=== PATIENT | female | born 1950 | race Caucasian/White ===

== ENCOUNTER 2017-08-27 08:17 | Emergency (ER) | payer MEDICARE, BC ==
[2017-08-27 08:44] VITALS: BP 132/65
--- NOTE | 2017-08-27 09:45 | UC ---
Skin Complaint HPI - HPI Summary HPI Summary: PATIENT WAS DOING YARD WORK 2 DAYS AGO AND YESTERDAY SHE HAD AN IRRITATION IN HER LEFT ARMPIT. FOUND A TICK WHICH HER REMOVED PARTIALLY. CAME IN TODAY BECAUSE SHE IS CONCERNED ABOUT THE SURROUNDING REDNESS AND TENDERNESS. SHE THINKS THE TICK MAY BEEN ATTACHED FOR AT LEAST 24 HOURS WHEN SHE FOUND IT. - History of Current Complaint Chief Complaint: UCSkin Time Seen by Provider: 08/27/17 09:28 Stated Complaint: TICK BITE Hx Obtained From: Patient Onset/Duration: Sudden Onset, Lasting Days, Still Present Timing: Constant Onset Severity: Mild Current Severity: Mild Pain Intensity: 1 Pain Scale Used: 0-10 Numeric Location: Discrete - LEFT AXILLA Character: Redness, Painful Aggravating Factor(s): Touch Alleviating Factor(s): Nothing Associated Signs & Symptoms: Positive: Tenderness - Allergy/Home Medications Allergies/Adverse Reactions: Allergies Allergy/AdvReac Type Severity Reaction Status Date / Time No Known Allergies Allergy Verified 08/27/17 08:33 Review of Systems Constitutional: Negative Skin: Other - ERYTHEMA AT BITE SITE Respiratory: Negative Cardiovascular: Negative Gastrointestinal: Negative All Other Systems Reviewed And Are Negative: Yes PMH/Surg Hx/FS Hx/Imm Hx Previously Healthy: Yes - Surgical History Surgical History: Yes Surgery Procedure, Year, and Place: x4. left knee surgery - Family History Known Family History: Negative: Cardiac Disease, Hypertension, Diabetes - Social History Alcohol Use: Occasionally Substance Use Type: None Smoking Status (MU): Never Smoked Tobacco Have You Smoked in the Last Year: No Physical Exam Triage Information Reviewed: Yes Appearance: Well-Appearing, No Pain Distress, Well-Nourished Vital Signs: Initial Vital Signs Temp 98.5 F 08/27/17 08:34 Pulse 63 08/27/17 08:34 Resp 16 08/27/17 08:34 BP 132/65 08/27/17 08:34 Pulse Ox 98 08/27/17 08:34 Vital Signs Reviewed: Yes Eyes: Positive: Conjunctiva Clear ENT: Positive: Hearing grossly normal Neck: Positive: Supple Respiratory: Positive: No respiratory distress, No accessory muscle use Cardiovascular: Positive: Pulses Normal Abdomen Description: Positive: Soft Musculoskeletal: Positive: No Edema Neurological: Positive: Alert Psychological: Positive: Age Appropriate Behavior Skin: Positive: Other - 4.5CM AREA OF ERYTHEMA SURROUNDING TICK BITE SITE LEFT AXILLA. PINHEAD SIZED TICK PART RETAINED. MILDLY TENDER Course/Dx - Course Course Of Treatment: REDNESS IS MORE LIKELY LOCAL IRRITATION AND INFLAMMATION FROM TICK BITE THAN INFECTION/CELLULITIS. PT WILL FOLLOW-UP IF NOT IMPROVING OVER THE NEXT SEVERAL DAYS. - Diagnoses Provider Diagnoses: TICK BITE Discharge - Sign-Out/Discharge Documenting (check all that apply): Discharge/Admit/Transfer - Discharge Plan Condition: Stable Disposition: HOME Prescriptions: Doxycycline Monohydrate [Doxycycline Monohydrate] 2 cap PO ONCE #2 cap Patient Education Materials: Tick Bite (ED) Referrals: Mariel Galaviz MD [Primary Care Provider] - If Needed Additional Instructions: TICK BITE PROPHYLAXIS You received 200mg of doxycycline for prophylaxis against Lyme disease. The Infectious Disease Society of [place] (IDSA) does not generally recommend antimicrobial prophylaxis for prevention of Lyme disease after a recognized tick bite. However, in areas that are highly endemic for Lyme disease, a single dose of doxycycline may be offered to adult patients (200 mg) who are not and to children older than 8 years of age (4 mg/kg up to a maximum dose of 200 mg) when all of the following circumstances exist: CRITERIA FOR RECEIVING PROPHYLACTIC TREATMENT FOR LYME DISEASE 1) TICK ATTACHED FOR AT LEAST 36 HRS 2) TICK IS AN ADULT OR [place] DEER TICK 3) YOU LIVE IN AN AREA WHERE LYME DISEASE IS PREVALENT (i.e., [place], [place], [place] , [place], [place], [place], [place], [place], [place], [place], [place], [place]) 4) YOU HAVE NO CONTRAINDICATION TO THE MEDICATION (DOXYCYCLINE) 5) PROPHYLAXIS IS BEGUN WITHIN 72 HRS OF TICK REMOVAL BE VIGILANT OF YOUR SYMPTOMS AND DON'T HESITATE TO GET SEEN AGAIN IF YOU DEVELOP UNEXPLAINED FEVER, HEADACHE, JOINT PAIN, BODY ACHES, RASH OR ANY OTHER CONCERNING SYMPTOMS. Antibiotic treatment following a tick bite is not recommended as a means to prevent anaplasmosis, babesiosis, ehrlichiosis, or [place] spotted fever. There is no evidence this practice is effective, and it may simply delay onset of disease. Instead, persons who experience a tick bite should be alert for symptoms suggestive of tickborne illness and consult a physician if fever, rash, or other symptoms of concern develop. - Billing Disposition and Condition Condition: STABLE Disposition: HOME
== END 2017-08-27 09:54 | disposition home or self-care (01) ==
LOC: UCEAST 08:17
DX: S40.862A Insect bite (nonvenomous) of left upper arm, initial encounter (principal); W57.XXXA Bitten or stung by nonvenomous insect and other nonvenomous arthropods, initial encounter; Y93.9 Activity, unspecified; Y92.9 Unspecified place or not applicable
CPT/HCPCS: 99212; G0463

== ENCOUNTER 2020-10-11 13:16 | Inpatient (IN) ==
[2020-10-11 17:46] LABS: ABS Eosinophils 0.2 10^3/ul (0-0.6); ABS Lymphocytes 2.5 10^3/ul (1.0-4.8); ABS Monocytes 0.3 10^3/ul (0-0.8); ABS Neutrophils 4.5 10^3/ul (1.5-7.7); Eosinophil % 2.1 %; Hematocrit 38 % (35-47); Lymphocyte % 33.4 %; Mean Corpuscular HGB Conc 34 g/dL (31-36); Mean Corpuscular Hemoglobin 29 pg (27-31); Mean Corpuscular Volume 86 fL (80-97); Mean Platelet Volume 8.9 fL (7.4-10.4); Nucleated Red Blood Cells % 0.1; Platelet Count 230 10^3/uL (150-450); Red Blood Count 4.44 10^6 /uL (3.70-4.87); Red Cell Distribution Width 14 % (10-15); White Blood Count 7.5 10^3/uL (3.5-10.8)
[2020-10-11 17:56] LABS: Activated Partial Thrombo Time 29.1 seconds (26.0-38.0); INR 0.92 (0.82-1.09)
[2020-10-11 18:03] LABS: Albumin 4.5 g/dL (3.2-5.2); Albumin/Globulin Ratio 1.8 (1-3); Calcium 9.5 mg/dL (8.6-10.3); EGFR African American 98.5 (>60); EGFR Non-African American 81.4 (>60); Globulin 2.5 g/dL (2-4); Potassium 3.8 mmol/L (3.5-5.0); Total Bilirubin 0.4 mg/dL (0.2-1.0)
[2020-10-11] MEDS ORDERED: Ondansetron 4 mg VIAL 2 MG/ML 2 ml VIAL IV PRN (18:04)
[2020-10-11] MEDS ORDERED: Dexamethasone IV 4 MG/ML VIAL 1 ml VIAL IV SLOW PU ONE (21:11)
[2020-10-12 04:54] LABS: ABS Lymphocytes 0.8 10^3/ul (1.0-4.8); ABS Monocytes 0.1 10^3/ul (0-0.8); ABS Neutrophils 5.1 10^3/ul (1.5-7.7); Eosinophil % 0.1 %; Hematocrit 40 % (35-47); Hemoglobin 13.2 g/dL (12.0-16.0); Lymphocyte % 13.8 %; Mean Corpuscular HGB Conc 33 g/dL (31-36); Mean Corpuscular Hemoglobin 29 pg (27-31); Mean Corpuscular Volume 87 fL (80-97); Mean Platelet Volume 9.1 fL (7.4-10.4); Platelet Count 234 10^3/uL (150-450); Red Blood Count 4.56 10^6 /uL (3.70-4.87); Red Cell Distribution Width 14 % (10-15); White Blood Count 5.9 10^3/uL (3.5-10.8)
[2020-10-12] MEDS ORDERED: Polyethylene Glycol 3350 17 GM PACKET PO PRN (08:34)
[2020-10-12] MEDS ORDERED: Lactated Ringers 1000 ml BAG 1,000 ML IV SCH (09:00)
[2020-10-12] MEDS: Magnesium Hydroxide LIQ 30 ML UDC PO SCH ×2 (09:41→23:11)
[2020-10-12 12:20] LABS: Urine Appearance Cloudy; Urine Bilirubin Negative (Negative); Urine Blood Negative (Negative); Urine Color Yellow; Urine Glucose Negative (Negative); Urine Ketones 1+ (Negative); Urine Nitrite Negative (Negative); Urine Protein Negative (Negative); Urine Urobilinogen Negative (Negative)
[2020-10-12 12:48] LABS: Urine Bacteria Absent (Absent); Urine Red Blood Cell Absent (Absent); Urine Squamous Epithelial Cell Present (Absent); Urine White Blood Cell 2+(11-20/hpf) (Absent)
[2020-10-12] MEDS ORDERED: Buffered Lidocaine 1% SYRIN 1 ml INTRADERM ONE (13:05)
[2020-10-12] MEDS ORDERED: ceFAZolin 2 GM PREMIX 2 GM/50 ML BAG ONE (13:37)
[2020-10-12] MEDS ORDERED: fentaNYL 250 mcg/5 ml 50 MCG/ML 5 ml VIAL (250 MCG) ONE (13:40)
[2020-10-12] MEDS ORDERED: Remifentanil 2 MG VIAL ONE ×2 (13:43→18:37)
[2020-10-12] MEDS ORDERED: Midazolam 2 mg/2 ml VIAL 1 mg/ml 2 ml VIAL (2 mg) ONE (13:43)
[2020-10-12] MEDS ORDERED: Propofol 10 MG/ML 20 ML BTL ONE (13:44)
[2020-10-12] MEDS ORDERED: Lidocaine 2% PF 5 ML VIAL ONE (13:44)
[2020-10-12] MEDS ORDERED: Phenylephrine IV 10 MG/ML 1 ml VIAL ONE (13:44)
[2020-10-12] MEDS ORDERED: Dexamethasone IV 4 MG/ML VIAL 1 ml VIAL ONE (13:44)
[2020-10-12] MEDS ORDERED: Bacitracin INJECTION (manuf dc) 50,000 UNITS ONE (13:57)
[2020-10-12] MEDS ORDERED: Propofol 10 mg/ml 100 ML BTL 200 ML ONE (15:46)
[2020-10-12] MEDS ORDERED: EPHEDrine (Pressors) 50 MG/ML VIAL ONE (16:20)
[2020-10-12] MEDS ORDERED: ceFAZolin VIAL VIAL ONE (19:13)
[2020-10-12] MEDS ORDERED: Ondansetron 4 mg VIAL 2 MG/ML 2 ml VIAL ONE (19:32)
[2020-10-12] MEDS ORDERED: Acetaminophen IV 1 GM/100ML 100 ML ONE (19:33)
[2020-10-12] MEDS ORDERED: diPHENhydraMINE IV 50 MG/ML 1 ml VIAL (BENADRYL) IV PRN (20:19)
[2020-10-12] MEDS ORDERED: Naloxone 0.4 mg VIAL 0.4 mg/ml 1 ml VIAL IV PRN ×2 (20:19→21:40)
[2020-10-12] MEDS ORDERED: DiMENhydriNATE IV 50 mg/ml 1 ml VIAL IV PUSH PRN (20:19)
[2020-10-12] MEDS ORDERED: fentaNYL 100 mcg/2 ml 50 MCG/ML VIAL ONE ×2 (20:23→21:27)
[2020-10-12] MEDS: fentaNYL 100 mcg/2 ml 50 MCG/ML VIAL IV PRN ×5 (20:26→21:35)
[2020-10-12] MEDS ORDERED: HYDROcodone/ACETAMIN 5/325 mg TAB PO PRN (20:31)
[2020-10-12] MEDS: HYDROmorphone 1 MG/1 ML SYRINGE IV PRN ×2 (21:38→22:25)
[2020-10-12] MEDS ORDERED: HYDROmorphone 1 MG/1 ML SYRINGE ONE (21:38)
[2020-10-13] MEDS: HYDROcodone/ACETAMIN 5/325 mg TAB PO PRN ×3 (01:16→12:48)
[2020-10-13] MEDS: Magnesium Hydroxide LIQ 30 ML UDC PO SCH (08:28)
[2020-10-13 11:16] VITALS: BP 100/60
== END 2020-10-13 17:00 | disposition home or self-care (01) | DRG 460 ==
LOC: ED 13:16 → SSU 13:16
PROVIDERS: ADMIT Hospitalist; ATTEND Hospitalist